=== PATIENT | female | born 2005 | race Caucasian/White ===

== ENCOUNTER 2024-11-13 21:43 | Emergency (ER) | payer MEDICAID ==
[~2024-11-13] VITALS: Ht 165.1 cm; Wt 48.0 kg
[2024-11-13 21:53] VITALS: BP 102/62; TEMP 36.8; O2SAT 99
[2024-11-13 21:55] VITALS: PULSE 66; RESP 20; O2SAT 98
[2024-11-13] MEDS ORDERED: SODIUM CHLORIDE 0.9% 1,000 ML IV ONE (22:45)
== END 2024-11-14 00:38 | disposition left against medical advice (07) ==
LOC: ER 21:43
DX: F10.90 Alcohol use, unspecified, uncomplicated (principal); Y90.9 Presence of alcohol in blood, level not specified
CPT/HCPCS: 99282; J7030